=== PATIENT | female | born 1930 | race Caucasian/White ===

== ENCOUNTER 2019-05-19 03:32 | Inpatient (IN) ==
[2019-05-19] MEDS ORDERED: ROCEPHIN 1 GM in NS 50 ML IV ONE ×2 (03:54→05:05)
[2019-05-19] MEDS ORDERED: TYLENOL PO ONE (03:54)
[2019-05-19] MEDS ORDERED: NS 1,000 ML IV ONE ×3 (03:54→05:44)
[2019-05-19 04:28] LABS: URINE SOURCE CATH
[2019-05-19 04:33] LABS: BILIRUBIN URINE NEGATIVE (NEGATIVE); BLOOD URINE MODERATE (NEGATIVE); COLOR YELLOW; GLUCOSE URINE NEGATIVE (NEGATIVE); KETONE URINE NEGATIVE (NEGATIVE); LEUKOCYTES URINE LARGE (NEGATIVE); NITRITE URINE NEGATIVE (NEGATIVE); PROTEIN URINE 50 mg/dL (NEGATIVE); SP GRAVITY URINE 1.015; TURBIDITY URINE HAZY (CLEAR); UROBILINOGEN URINE NORMAL (NORMAL)
[2019-05-19 04:35] LABS: INR 1.11; PROTIME 14.9 Seconds (11.0-16.0)
[2019-05-19 04:36] LABS: PTT 30.7 Seconds (22.3-41.8)
[2019-05-19 04:42] LABS: UR EPITHELIAL CELLS <10 /HPF (<10); URINE BACTERIA 4+ /HPF; URINE CASTS NONE SEEN; URINE CRYSTALS NONE SEEN; URINE RBC TNTC /HPF (<10); URINE SMALL ROUND CELLS NONE SEEN; URINE WBC TNTC /HPF (<10); URINE YEAST NONE SEEN
[2019-05-19 04:55] LABS: BASO# 0.03 X1000 (0.0-0.2); BASO% 0.3 % (0.0-0.8); EOS# 0.09 X1000 (0.0-0.7); HEMATOCRIT 40.8 % (37.0-47.0); HEMOGLOBIN 13.3 g/dL (12.0-16.0); IMM GRAN# 0.03 X1000 (0.0-0.04); IMM GRAN% 0.3 % (0.0-0.5); LYMPH# 0.65 X1000 (1.2-3.4); MCH 30.5 PG (27-31); MCHC 32.6 g/dL (33-37); MCV 93.6 FL (81-99); MONO# 0.16 X1000 (0.11-0.59); MONO% 1.7 % (1.7-9.3); MPV 9.9 FL (7.4-10.4); NEUT# 8.39 X1000 (1.4-6.5); NEUT% 89.7 % (42.2-75.2); PLT 267 X1000 (130-400); RBC 4.36 XMIL (4.2-5.4); RDW 13.3 % (11.5-14.5); WBC 9.35 X1000 (4.8-10.8)
[2019-05-19 04:56] LABS: INFLUENZA A NEGATIVE (NEGATIVE); INFLUENZA B NEGATIVE (NEGATIVE)
[2019-05-19 05:00] LABS: ALBUMIN 4.2 g/dL (3.5-5.0); CALCIUM 9.6 mg/dL (8.8-10.2); POTASSIUM 4.1 mmol/L (3.5-5.1); TOTAL BILIRUBIN 0.9 mg/dL (0.20-1.00); TOTAL PROTEIN 7.1 g/dL (6.3-8.3)
--- NOTE | 2019-05-19 05:19 | PROVIDER DOCUMENTATION ---
HPI-Fever - General Chief Complaint: Altered Mental Status Stated Complaint: EXTERMITY PAIN Time Seen by Provider: 05/19/19 03:50 Source: patient, family Allergies/Adverse Reactions: Patient Allergies Allergy/AdvReac Type Severity Reaction Status Date / Time No Known Allergies Allergy Verified 08/04/15 17:45 Home Medications: Home Medication List Medication Instructions Recorded Confirmed Last Taken Type Aspirin 81 mg PO QHS 06/16/14 08/04/15 08/03/15 19:00 History Calcium Carbonate [Caltrate 600] 600 mg PO QAM 06/16/14 08/04/15 08/04/15 06:30 History Cetirizine HCl [Zyrtec] 10 mg PO QAM 06/16/14 08/04/15 08/04/15 06:30 History Hydrochlorothiazide 25 mg PO QAM 06/16/14 08/04/15 08/04/15 06:30 History Iron 18 mg PO QAM 06/16/14 08/04/15 08/04/15 06:30 History Levothyroxine [Synthroid] 75 mcg PO QAM 06/16/14 08/04/15 08/04/15 06:30 History Meloxicam 15 mg PO QAM 06/16/14 08/04/15 08/04/15 06:30 History Niacin 1,000 mg PO 06/16/14 08/04/15 08/03/15 19:00 History PRAVAstatin [Pravachol] 40 mg PO QHS 06/16/14 08/04/15 08/03/15 19:00 History Propranolol [Inderal] 10 mg PO QAM 06/16/14 08/04/15 08/04/15 06:30 History Multivitamins/Minerals [Centrum 1 each PO QAM 08/04/15 08/04/15 08/04/15 06:30 History Silver] Omeprazole 40 mg PO QAM 08/04/15 08/04/15 08/04/15 06:00 History - History of Present Illness-Fever Nature of Presenting Problem: Brought by son and daughter in law for weakness, unsteady gait, fever, confusion, lethargy and foul smelling urine for the last 2 days, getting worse. Fever Severity/Quality: reports: greater than 102 F Onset/Duration: reports: 2 days ago Timing: reports: still present, constant, changing over time, getting worse Severity: reports: moderate Context: reports: decreased mental status, confusion Recent Illness?: reports: none Fever Therapy REMEDIATION CONSULTANT: Initiated none Cognitive Baseline: alert, oriented x3 Modifying Factors: improves with: nothing. worse with: movement Associated Symptoms: reports: loss of appetite, weakness, trouble walking Similar Symptoms Previously?: No Recently seen or treated by another doctor?: No - Glascow Coma Score Best Eye Response ([place]): (4) open spontaneously Best Verbal Response ([place]): (4) confused conversation Best Motor Response ([place]): (5) localizes to pain [place] Total: 13 Review of Systems - Adult - REVIEW OF SYSTEMS - ADULT ROS:: ROS per family Constitutional: reports: no symptoms reported Eyes: reports: no symptoms reported Ears, Nose, Mouth & Throat: reports: no symptoms reported Cardiovascular: reports: no symptoms reported Respiratory: reports: no symptoms reported Gastrointestinal: reports: no symptoms reported Genitourinary: reports: no symptoms reported Musculoskeletal: reports: no symptoms reported Integumentary: reports: no symptoms reported Neurological: reports: no symptoms reported Psychiatric: reports: no symptoms reported Endocrine: reports: no symptoms reported Hematologic/Lymphatic: reports: no symptoms reported Allergic/Immunologic: reports: no symptoms reported All Other Systems: Reviewed and Negative Past History - Adult - PAST MEDICAL HISTORY-ADULT Review of Records: reports: Old Records Reviewed, Nursing Assessment Review, Medications Reviewed, Social history reviewed & non-contributory. Major Childhood Illnesses: reports: denies history Cardiovascular: reports: HTN, hyperlipidemia Respiratory: reports: denies history Gastrointestinal: reports: denies history Obstetrical/Gynecological: reports: denies history Genitourinary: reports: denies history Musculoskeletal: reports: arthritis Neurological: reports: dementia Endocrine/Immune: reports: thyroid disorder Other Conditions: reports: denies history - PRIOR SURGERIES/PROCEDURES Surgical/Procedure History: reports: hysterectomy, other (hemorrhiod) - IMMUNIZATION STATUS Childhood Immunizations: See Nurse Assessment Flu Vaccine: See Nurse Assessment - FAMILY HISTORY Family History: reviewed, not pertinent - SOCIAL HISTORY Smoking: non-smoker Substance Use: none/never Alcohol Use Frequency: never Living Situation: family Physical Exam-General - PHYSICAL EXAM-ADULT Initial Vital Signs Reviewed: Yes (febrile, tachycardic) - CONSTITUTIONAL General Appearance: alert, no apparent distress, slow to respond - EYES Eyes: PERRL/EOMI, pink conjunctivae - HEAD, EARS, NOSE, MOUTH & THROAT HENMT: normocephalic/atraumatic, normal ENT inspection, pharynx normal. negative: moist mucous membranes (dry) - NECK Neck: non-tender, full range of motion, supple, normal inspection. negative: meningismus - RESPIRATORY Respiratory: chest non-tender, lungs clear, normal breath sounds, no pleuratic chest pain, no respiratory distress, no accessory muscle use, increased rate - CARDIOVASCULAR Cardiovascular: normal peripheral pulses, regular rate, rhythm, no edema, no gallop, no JVD, no murmur, tachycardia - GASTROINTESTINAL (ABDOMEN) Abdominal Exam: normal bowel sounds, non tender, soft, no organomegaly, no pulsatile mass - LYMPHATIC Lymphatic: no adenopathy - MUSCULOSKELETAL Back Exam: normal inspection, no vertebral tenderness. negative: decreased range of motion Extremity: normal range of motion, non-tender, normal capillary refill, pedal edema Peripheral Pulses: radial (R): 2+, radial (L): 2+ - SKIN Integumentary: normal color, normal turgor, warm/dry - NEUROLOGIC Neurologic: non food receiving clerk II-XII nml as tested, abnormal gait, other (mild generalized weakness) - PSYCHIATRIC Psych/Mental Status: normal mood/affect. negative: oriented x 3 (to name only) Progress - PLAN OF CARE/RESULTS Progress/Plan/Lab Results: Vital Signs - 8 hr 05/19/19 03:39 Temperature 100.6 F H Pulse Rate 102 H Respiratory Rate 20 Blood Pressure 118/77 O2 Sat by Pulse Oximetry 92 L Laboratory Results - last 24 hr 05/19/19 05/19/19 05/19/19 03:55 03:57 03:57 WBC 9.35 RBC 4.36 Hgb 13.3 Hct 40.8 MCV 93.6 MCH 30.5 MCHC 32.6 L RDW Std Deviation 13.3 Plt Count 267 MPV 9.9 Immature Gran % (Auto) 0.3 Neut % (Auto) 89.7 H Lymph % (Auto) 7.0 L Mcmullen % (Auto) 1.7 Eos % (Auto) 1.0 Baso % (Auto) 0.3 Immature Gran # (Auto) 0.03 Neut # (Auto) 8.39 H Lymph # (Auto) 0.65 L Mcmullen # (Auto) 0.16 Eos # (Auto) 0.09 Baso # (Auto) 0.03 PT INR PTT (Actin FS) Sodium 139 Potassium 4.1 Chloride 102 Carbon Dioxide 21 L Anion Gap 16 BUN 17 Creatinine 1.0 H Estimated GFR/1.73 m2 52 BUN/Creatinine Ratio 17 Glucose 154 H Calculated Osmolality 282 Calcium 9.6 Total Bilirubin 0.90 AST 47 H ALT 16 Alkaline Phosphatase 134 H Creatine Kinase 1280 H Creatine Kinase Index 0.7 CK-MB (CK-2) 9.22 H Troponin T High Sens Total Protein 7.1 Albumin 4.2 Globulin 3.0 Albumin/Globulin Ratio 1.0 Plasma Lactate Urine Source Urine Color Urine Turbidity Urine pH Ur Specific [place] Urine Protein Ur Glucose (Stick) Ur Ketones (Stick) Urine Blood Urine Nitrite Urine Bilirubin Urobilinogen Dipstick Urine Leukocytes Urine WBC (Auto) Urine RBC (Auto) U Epithel Cells (Auto) Urine Bacteria (Auto) Urine Crystals Small Round Cells Urine Casts Urine Yeast-like Cells Influenza A (Rapid) NEGATIVE Influenza B (Rapid) NEGATIVE 05/19/19 05/19/19 05/19/19 03:57 03:57 03:57 WBC RBC Hgb Hct MCV MCH MCHC RDW Std Deviation Plt Count MPV Immature Gran % (Auto) Neut % (Auto) Lymph % (Auto) Mcmullen % (Auto) Eos % (Auto) Baso % (Auto) Immature Gran # (Auto) Neut # (Auto) Lymph # (Auto) Mcmullen # (Auto) Eos # (Auto) Baso # (Auto) PT 14.9 INR 1.11 PTT (Actin FS) 30.7 Sodium Potassium Chloride Carbon Dioxide Anion Gap BUN Creatinine Estimated GFR/1.73 m2 BUN/Creatinine Ratio Glucose Calculated Osmolality Calcium Total Bilirubin AST ALT Alkaline Phosphatase Creatine Kinase Creatine Kinase Index CK-MB (CK-2) Troponin T High Sens 22 H* Total Protein Albumin Globulin Albumin/Globulin Ratio Plasma Lactate 1.8 Urine Source Urine Color Urine Turbidity Urine pH Ur Specific [place] Urine Protein Ur Glucose (Stick) Ur Ketones (Stick) Urine Blood Urine Nitrite Urine Bilirubin Urobilinogen Dipstick Urine Leukocytes Urine WBC (Auto) Urine RBC (Auto) U Epithel Cells (Auto) Urine Bacteria (Auto) Urine Crystals Small Round Cells Urine Casts Urine Yeast-like Cells Influenza A (Rapid) Influenza B (Rapid) 05/19/19 04:11 WBC RBC Hgb Hct MCV MCH MCHC RDW Std Deviation Plt Count MPV Immature Gran % (Auto) Neut % (Auto) Lymph % (Auto) Mcmullen % (Auto) Eos % (Auto) Baso % (Auto) Immature Gran # (Auto) Neut # (Auto) Lymph # (Auto) Mcmullen # (Auto) Eos # (Auto) Baso # (Auto) PT INR PTT (Actin FS) Sodium Potassium Chloride Carbon Dioxide Anion Gap BUN Creatinine Estimated GFR/1.73 m2 BUN/Creatinine Ratio Glucose Calculated Osmolality Calcium Total Bilirubin AST ALT Alkaline Phosphatase Creatine Kinase Creatine Kinase Index CK-MB (CK-2) Troponin T High Sens Total Protein Albumin Globulin Albumin/Globulin Ratio Plasma Lactate Urine Source CATH Urine Color YELLOW Urine Turbidity HAZY Urine pH 6.0 Ur Specific [place] 1.015 Urine Protein 50 A Ur Glucose (Stick) NEGATIVE Ur Ketones (Stick) NEGATIVE Urine Blood MODERATE A Urine Nitrite NEGATIVE Urine Bilirubin NEGATIVE Urobilinogen Dipstick NORMAL Urine Leukocytes LARGE A Urine WBC (Auto) TNTC A Urine RBC (Auto) TNTC A U Epithel Cells (Auto) <10 Urine Bacteria (Auto) 4+ Urine Crystals NONE SEEN Small Round Cells NONE SEEN Urine Casts NONE SEEN Urine Yeast-like Cells NONE SEEN Influenza A (Rapid) Influenza B (Rapid) Orders Category Date Time Status Cardiac Monitoring DIRECTED Care 05/19/19 03:53 Active [place] Cath Insertion ORDERED Care 05/19/19 03:54 Active IV Insertion ORDERED Care 05/19/19 03:53 Completed Notify of + Sepsis Screen NOW Care 05/19/19 03:53 Active CHEST-1 VIEW [RAD] Stat Exams 05/19/19 03:53 Taken BLOOD CULTURE [BLDCUL] Stat Lab 05/19/19 04:21 Ordered CBC WITH DIFF [HEME] Stat Lab 05/19/19 03:57 Completed CK PROFILE [SP CHEM] Stat Lab 05/19/19 03:57 Completed COMPREHENSIVE METABOLIC PANEL [CHEM] Stat Lab 05/19/19 03:[address] Stat Lab 05/19/19 03:55 Completed LACTATE, PLASMA [CHEM] Lab 05/19/19 07:00 Uncollected LACTATE, PLASMA [CHEM] Lab 05/19/19 10:00 Uncollected LACTATE, PLASMA [CHEM] Q3H Lab 05/19/19 03:57 Completed PROTIME WITH INR [COAG] Stat Lab 05/19/19 03:57 Completed PTT [COAG] Stat Lab 05/19/19 03:57 Completed TROPONIN T HIGH SENSITIVITY Stat Lab 05/19/19 03:57 Completed URINALYSIS W/POSS RFLX CULT [URINALYSIS] Stat Lab 05/19/19 04:11 Completed URINE CULTURE [RM] Routine Lab 05/19/19 04:43 Ordered URINE MANUAL MICROSCOPIC [URINALYSIS] Stat Lab 05/19/19 04:11 Completed 0.9% Sodium Chloride Inj [Ns] 1,000 ml Med 05/19/19 03:54 Discontinued IV 999 mls/hr 0.9% Sodium Chloride Inj [Ns] 1,000 ml Med 05/19/19 03:54 Discontinued IV 999 mls/hr Acetaminophen [Tylenol] Med 05/19/19 03:54 Discontinued 650 mg PO NOW ONE CefTRIAXONE [Rocephin] 1 gm Med 05/19/19 03:54 Discontinued 0.9% Sodium Chloride Inj [Ns] 50 ml IV NOW CefTRIAXONE [Rocephin] 1 gm Med 05/19/19 05:05 Discontinued 0.9% Sodium Chloride Inj [Ns] 50 ml IV NOW Oxygen Device Stat Oth 05/19/19 03:53 Active Result Diagrams: 05/19/19 03:57 05/19/19 03:57 - REASSESSMENT Reassessment #1 Time Reassessed: 05:40 Status: improving (Given IVF, tylenol , 2gm rocephin. Meets sepsis crioteria, but is not in severe sepsis or septic shock. Will needs admission) - EKG 1 Time of EKG reading by physician:: 05:10 EKG Read and Signed by:: Quan Mccrary EKG Interpretation (*Must complete 3 of following elements*): Abnormal Rate: 88 Rhythm: nsr Cub Run: normal QRS: normal SC Interval: normal ST Wave: non-specific ST changes - XRAY 1 XRAY Study: Chest Impression: Abnormal (read by me. Borderline CM, elevated right hemidiaphragm, no obvious infiltrates. 05) - CONSULTS/PCP/HOSPITALIST Notification #1 *Consult/PCP/Hospitalist*: Soumya Time Discussed: 05:30 Consult Disposition: Admit Departure - Departure Date of Disposition Decision: 05/19/19 Time of Disposition Decision: 05:41 DIAGNOSIS: Altered mental status, unspecified Qualifiers: Altered mental status type: disorientation Qualified Code(s): R41.0 - Disorientation, unspecified Sepsis Qualifiers: Sepsis type: sepsis due to unspecified organism Sepsis acute organ dysfunction status: with acute organ dysfunction Severe sepsis acute organ dysfunction type: encephalopathy Severe sepsis shock status: without septic shock Qualified Code(s): A41.9 - Sepsis, unspecified organism; R65.20 - Severe sepsis without septic shock; G93.40 - Encephalopathy, unspecified UTI (urinary tract infection) Qualifiers: Urinary tract infection type: acute pyelonephritis Qualified Code(s): N10 - Acute pyelonephritis Disposition: ADMITTED INPATIENT 09 Certified Medical Emergency: Emergent Condition: Fair Referrals and Follow-Ups: Juan Jose Santana MD [Primary Care Provider] - - Critical Care Note This patient required my direct & personal management of CC.: Yes Total Time (mins): 40 Critical Care Statement: This patient required my direct personal management to treat or rule out processes, the absence of which, could potentiallly result in sudden, clinically significant life or limb threatening deterioration. Attestation - Physician/ HORACIO Attestation Patient care was provided by Advanced Practice Provider:: No The physician spent face to face time with patient:: Yes Advanced Practice Provider documentation review:: Supervising physician onsite and consulted in the evaluation and care of this patient. The physician did have a face to face encounter with the patient.
[2019-05-19 05:23] LABS: CK INDEX 0.7 (0.0-2.5); CK-MB 9.22 ng/mL (0.0-5.0)
[2019-05-19] MEDS ORDERED: ZOFRAN ODT PO PRN (05:44)
--- NOTE | 2019-05-19 07:46 | Diag Imaging Result Doc PS360 ---
CHEST-1 VIEW - 05/19/2019 INDICATION: fever, AMS COMPARISON: 05/29/2017 FINDINGS: Lung volumes are critically low. No infiltrates. Heart size is normal. No pneumothorax or pleural effusion. IMPRESSION: Critically low lung volumes but no acute disease. Electronically signed by Laith Garcia 05/19/2019 7:44 AM
[2019-05-19] MEDS ORDERED: NS 1,000 ML ONE (09:18)
--- NOTE | 2019-05-19 09:46 | EKG Report ---
Test Performed on : 05/19/2019 05:03:57 AM Test Reason : ER Blood Pressure : / mmHG Vent. Rate : 088 BPM Atrial Rate : 088 BPM P-R Int : 164 ms QRS Dur : 092 ms QT Int : 374 ms P-R-T Axes : 071 041 035 degrees QTc Int : 452 ms Normal sinus rhythm. Normal ECG When compared with ECG of 04-AUG-2015 13:26, Nonspecific T wave abnormality no longer evident in Lateral leads Unconfirmed Result
[2019-05-19] MEDS ORDERED: SYNTHROID PO SCH (10:45)
[2019-05-19] MEDS ORDERED: CENTRUM SILVER PO SCH (10:45)
[2019-05-19] MEDS: PRILOSEC PO SCH (11:36)
[2019-05-19] MEDS: INDERAL PO SCH (11:36)
[2019-05-19 13:29] LABS: CK INDEX 0.6 (0.0-2.5); CK-MB 5.01 ng/mL (0.0-5.0)
--- NOTE | 2019-05-19 14:00 | HISTORY AND PHYSICAL ---
PRIMARY CARE PROVIDER: Juan Jose Santana CHIEF COMPLAINT: Foul smelling urine, more confusion, weakness and incontinence. HISTORY OF PRESENT ILLNESS: Ms. Paula Burnette is an 88-year-old female who presents with decreased strength, chills, fever. Per the [id number] at the bedside, symptoms started Sunday. She noticed that the patient had foul smelling urine with some incontinence on Sunday. She was getting weaker and was still able to go to [facility], did not go to [facility], progressively became more weak, was placed in the bed at night, and the patient started complaining of chills and fever, was having more nonverbal communication than she was verbal communicating. So she was brought here to [facility] where she was found to have a urinalysis positive for 4+ bacteria, too numerous to count white blood cells and large leukocytes; however, white blood cell count is normal. Since she has been here, she has had IV fluid hydration, some IV antibiotics, and the patient is already starting to become a little more clear. She does have a history of dementia. PAST MEDICAL HISTORY: 1. GERD. 2. Hyperlipidemia. 3. Essential tremors. 4. Arthritis. 5. Hypothyroidism. 6. Iron deficiency anemia. 7. Hypertension. 8. Dementia. 9. Chronic anxiety. PAST SURGICAL HISTORY: 1. Hysterectomy. 2. Hemorrhoidectomy. 3. Bilateral cataracts. SOCIAL HISTORY: Denies tobacco, alcohol or illicit drug use. She lives at home with her son and [id number]. She usually walks with a walker. FAMILY HISTORY: No known medical conditions of the mother and father. ALLERGIES: No known drug allergies. HOME MEDICATIONS: 1. Aspirin 81 mg p.o. nightly. 2. Donepezil HCl 5 mg p.o. nightly. 3. Mobic 15 mg p.o. nightly. 4. Pravastatin 40 mg p.o. nightly. 5. Caltrate 600 mg p.o. daily. 6. Multivitamin 1 tab p.o. daily. 7. Propranolol 10 mg p.o. daily. 8. Klonopin 0.25 mg p.o. nightly. 9. Omeprazole 40 mg p.o. daily. 10.Synthroid 88 mcg p.o. daily. REVIEW OF SYSTEMS: Denies any symptoms. A 10-point review of systems was complete, and all were negative except for those mentioned in the above HPI. PHYSICAL EXAMINATION: VITAL SIGNS: Temperature 97.8, but prior to that it was 100.6. Heart rate 70, respiratory rate 18, blood pressure 118/65, O2 saturation is 95% on room air. She is 5 feet 6 inches tall and 163 pounds with a BMI of 26.3. GENERAL: Ms. Paula Burnette is an 88-year-old female. She is in no acute distress. She is able to answer some questions appropriately but not all. HEENT: Atraumatic and normocephalic. Pupils are equal, round and reactive to light. Extraocular movements were intact. Mucous membranes are moist. NECK: Trachea midline. CARDIOVASCULAR: S1 and S2. Regular rate and rhythm. No rubs, gallops or murmurs. No lower extremity edema. There are +2 dorsalis and radial pulses. Negative JVD or carotid bruits. PULMONARY: Clear to auscultation, bilateral breath sounds. No accessory muscle use or work of breathing noted. GASTROINTESTINAL: Soft, nontender and nondistended. Positive bowel sounds x4. EXTREMITIES: Moves all extremities equally with full range of motion. NEUROLOGICAL: Alert and oriented to name only. Follows commands. SKIN: Warm, dry and intact. DIAGNOSTIC DATA: White blood cells are 9000, hemoglobin 13, hematocrit 40, platelet count 267. INR is 1.11. PTT is 30.7. Sodium is 139, potassium 4.1, BUN is 17, creatinine is 1.0, glucose 154, calcium 9.6, bilirubin 0.90, AST is 47, ALT is 16. CK is 68. CKMB is 9.22. Troponin is 19. Albumin 4.2. Lactate was 1.8, 1.2, and then 1.4. Urinalysis with 50 protein, moderate blood, large leukocytes, too numerous to count white blood cells, too numerous to count red blood cells, 4+ bacteria. Influenza A and B both negative. Chest x-ray with no acute findings. EKG is normal sinus rhythm with rate 88, QTC is 452. ASSESSMENT AND PLAN: 1. Urinary tract infection. Urinalysis obtained. The patient was started on antibiotic therapy. IV fluids given. No signs or symptoms of sepsis, although she did have a fever and high heart rate, it resolved with fluids. White count was normal. 2. Encephalopathy secondary to urinary tract infection which has started to improve with a baseline of dementia. 3. Dementia. Continue home medication, Donepezil. 4. Hyperlipidemia. Continue statin. 5. Essential tremors. Continue propranolol. 6. Gastroesophageal reflux disease. Continue proton pump inhibitor. 7. Hypothyroidism. Continue Synthroid. 8. DVT prophylaxis with SCDs. Dictated by ZACHARY Dyer for Bryan Dooley MD cc: ZACHARY Dyer MD
[2019-05-19] MEDS: THERA M PLUS PO SCH (14:22)
[2019-05-19] MEDS: ROCEPHIN 1 GM in NS 50 ML IV SCH ×2 (18:11→20:10)
[2019-05-19] MEDS: PRAVACHOL PO SCH (20:09)
[2019-05-19] MEDS: ASPIRIN PO SCH (20:09)
[2019-05-19] MEDS: MOBIC PO SCH (20:10)
[2019-05-19] MEDS: KLONOPIN PO PRN (20:14)
--- NOTE | 2019-05-19 20:25 | HISTORY AND PHYSICAL ---
ADDENDUM: Patient seen and examined by myself. Full note dictated and discussed with nurse practitioner. Patient presented to the hospital with unsteady gait, fever, confusion, and lethargy. She also noted to have a fever of 102. Currently temperature maximum is 100.6. She has a urinary infection. We are going to admit her to the hospital, treat her for sepsis, and will follow. cc: Bryan Dooley MD
[2019-05-19] MEDS ORDERED: ARICEPT PO SCH (21:00)
[2019-05-19 21:21] LABS: CK INDEX 0.5 (0.0-2.5); CK-MB 3.51 ng/mL (0.0-5.0)
[2019-05-20] MEDS: TYLENOL PO PRN ×2 (05:34→21:54)
[2019-05-20] MEDS ORDERED: KLONOPIN PO PRN (06:30)
[2019-05-20] MEDS: HALDOL IV PRN ×2 (07:30→21:55)
[2019-05-20] MEDS: CALTRATE 600 PO SCH (10:56)
[2019-05-20] MEDS: PRILOSEC PO SCH (10:56)
[2019-05-20] MEDS: INDERAL PO SCH (10:56)
[2019-05-20] MEDS: SYNTHROID PO SCH (10:56)
[2019-05-20] MEDS: THERA M PLUS PO SCH (10:57)
[2019-05-20] MEDS: ROCEPHIN 1 GM in NS 50 ML IV SCH ×2 (10:57→21:55)
--- NOTE | 2019-05-20 19:06 | PROGRESS NOTE ---
DATE: 05/20/2019 SUBJECTIVE: Patient is very agitated, yelling, cussing at times. She does not answer questions appropriately nor follow commands. OBJECTIVE: Temperature 100.5 degrees, pulse 66, respiratory rate 18, BP 118/48.General: Patient is in no current respiratory distress. She is lying in the bed. Currently, she is calm. HEENT: Normocephalic. Neck: Supple. Cardiovascular: Regular rate. Chest: Clear. Abdomen: Soft. Extremities: Moves all extremities. ASSESSMENT: 1. Gram-negative regulo urinary tract infection. Continue Rocephin. 2. Metabolic encephalopathy secondary to urinary tract infection. 3. Dementia. 4. Hyperlipidemia. 5. Tremors. 6. Hypothyroidism. PLAN: We are going to continue patient in the hospital, continue to follow. Further orders as needed. We will follow her urine culture and adjust when available. cc: Bryan Dooley MD
[2019-05-20] MEDS: ASPIRIN PO SCH (21:54)
[2019-05-20] MEDS: MOBIC PO SCH (21:54)
[2019-05-20] MEDS: ARICEPT PO SCH (21:55)
[2019-05-20] MEDS: PRAVACHOL PO SCH (21:55)
[2019-05-20] MEDS: BENADRYL IV PRN (21:55)
[2019-05-21] MEDS: SYNTHROID PO SCH (06:04)
[2019-05-21] MEDS: CALTRATE 600 PO SCH (09:55)
[2019-05-21] MEDS: ROCEPHIN 1 GM in NS 50 ML IV SCH ×2 (09:55→20:12)
[2019-05-21] MEDS: INDERAL PO SCH (09:55)
[2019-05-21] MEDS: THERA M PLUS PO SCH (09:56)
[2019-05-21] MEDS: PRILOSEC PO SCH (09:56)
[2019-05-21] MEDS ORDERED: NS 1,000 ML IV SCH (18:30)
[2019-05-21] MEDS: ASPIRIN PO SCH (20:12)
[2019-05-21] MEDS: PRAVACHOL PO SCH (20:13)
[2019-05-21] MEDS: ARICEPT PO SCH (20:13)
[2019-05-21] MEDS: MOBIC PO SCH (20:13)
--- NOTE | 2019-05-21 20:53 | PROGRESS NOTE ---
DATE: 05/21/2019 SUBJECTIVE: The patient continues to have issues with agitation, although Haldol does seem to improve that situation at times. We will continue antibiotics. PHYSICAL EXAM: Vital Signs: Temperature 98, pulse 72, respiratory rate 18, BP 143/57. General: Patient is pleasant. She is calm. She is awake. She is in no distress. She does awaken at times on her own and does drink some with the sitter. HEENT: Normocephalic. Neck: Supple. Cardiovascular: Regular rate. Chest: Clear, nonlabored. Abdomen: Soft, nondistended. Extremities: Moves all extremities. ASSESSMENT: 1. Gram-negative regulo urinary tract infection. 2. Metabolic encephalopathy. 3. Dementia. 4. Hypertension. 5. Essential tremors. PLAN: We will continue patient in the hospital, continue fluids and antibiotics. Will follow. cc: Bryan Dooley MD
[2019-05-22] MEDS: BENADRYL IV PRN (00:26)
[2019-05-22] MEDS: HALDOL IV PRN (00:26)
[2019-05-22] MEDS: NORCO-5 PO PRN (03:10)
[2019-05-22] MEDS: KLONOPIN PO PRN ×2 (03:10→20:49)
[2019-05-22] MEDS: SYNTHROID PO SCH (06:07)
[2019-05-22 07:07] LABS: AGAP 12; ALBUMIN 2.8 g/dL (3.5-5.0); ALKALINE PHOSPHATASE 99 U/L (32-104); BUN 11 mg/dL (8-22); CALCIUM 8.5 mg/dL (8.8-10.2); CHLORIDE 103 mmol/L (98-107); COSMO 268; CREATININE 0.8 mg/dL (0.5-0.9); ESTIMATED GFR > 60; GLUCOSE 111 mg/dL (70-104); GOT 28 U/L (10-30); GPT 15 U/L (10-36); MAGNESIUM 1.8 mg/dL (1.5-2.7); POTASSIUM 3.5 mmol/L (3.5-5.1); SODIUM 134 mmol/L (136-145); TCO2 20 mmol/L (25-35); TOTAL PROTEIN 6.3 g/dL (6.3-8.3)
[2019-05-22 07:15] LABS: HEMATOCRIT 34.6 % (37.0-47.0); HEMOGLOBIN 11.1 g/dL (12.0-16.0); MCH 29.8 PG (27-31); MCHC 32.1 g/dL (33-37); MCV 92.8 FL (81-99); MPV 10.5 FL (7.4-10.4); RBC 3.73 XMIL (4.2-5.4); RDW 13.1 % (11.5-14.5); WBC 8.49 X1000 (4.8-10.8)
[2019-05-22] MEDS: MAXIPIME 1 GM in NS 50 ML IV SCH ×2 (10:06→22:58)
[2019-05-22] MEDS: CALTRATE 600 PO SCH (10:07)
[2019-05-22] MEDS: THERA M PLUS PO SCH (10:08)
[2019-05-22] MEDS: PRILOSEC PO SCH (10:08)
[2019-05-22] MEDS: INDERAL PO SCH (10:08)
--- NOTE | 2019-05-22 20:17 | PROGRESS NOTE ---
DATE: 05/22/2019 SUBJECTIVE: Patient currently is calm, sleeping. She is in no distress. PHYSICAL EXAMINATION: Vital signs: T-max 101 degrees, T current 99 degrees, pulse 61, respiratory 20, BP 152/78. General: Patient is calm. She is in no current respiratory distress. She is sitting in the bed with her eyes closed. Does open them, but does not respond or answer questions. HEENT: Normocephalic. Neck: Supple. CV: Regular rate. Chest: Clear and nonlabored. Abdomen: Soft and nondistended. Extremities: Moves all extremities. ASSESSMENT: 1. Extended-spectrum beta lactamase positive Escherichia coli. We will stop Rocephin, switch to cefepime. 2. Metabolic encephalopathy. 3. Dementia. 4. Hyperlipidemia. 5. Essential tremors. 6. Hyponatremia. 7. Sepsis, resolved, secondary to urinary tract infection. cc: Bryan Dooley MD
[2019-05-22] MEDS: PRAVACHOL PO SCH (20:48)
[2019-05-22] MEDS: ASPIRIN PO SCH (20:49)
[2019-05-22] MEDS: ARICEPT PO SCH (20:49)
[2019-05-22] MEDS: MOBIC PO SCH (20:49)
[2019-05-23] MEDS ORDERED: MERREM 1 GM in NS 50 ML IV SCH (08:00)
[2019-05-23] MEDS: PRILOSEC PO SCH (08:13)
[2019-05-23] MEDS: SYNTHROID PO SCH (08:14)
[2019-05-23] MEDS: INVANZ 1 GM/NS 1 GM/50 ML IVPB IV SCH (10:44)
[2019-05-23] MEDS: INDERAL PO SCH (10:45)
[2019-05-23] MEDS: THERA M PLUS PO SCH (10:45)
[2019-05-23] MEDS: CALTRATE 600 PO SCH (10:45)
--- NOTE | 2019-05-23 20:50 | PROGRESS NOTE ---
DATE: 05/23/2019 SUBJECTIVE: The patient actually is much more alert today than she has been. She awakened and said "good morning" to verbal stimuli. OBJECTIVE: T-max 99 degrees, pulse 61, respiratory rate 18, BP 145/51.General: The patient is awake, pleasant. She is in no distress. HEENT: Normocephalic. Neck supple. Cardiovascular: Regular rate. Chest clear. Abdomen soft. Extremities: Moves all extremities. ASSESSMENT AND PLAN: 1. Extended-spectrum cpjs-szpezqzab-wiijalid Escherichia coli urinary tract infection. We switched to Invanz for which she will need 14 days, beginning today as day 1. 2. Dementia. 3. Metabolic encephalopathy, improved. 4. Hyperlipidemia. cc: Bryan Dooley MD
[2019-05-23] MEDS: ARICEPT PO SCH (21:16)
[2019-05-23] MEDS: PRAVACHOL PO SCH (21:17)
[2019-05-23] MEDS: ASPIRIN PO SCH (21:17)
[2019-05-23] MEDS: MOBIC PO SCH (21:17)
[2019-05-23] MEDS: KLONOPIN PO PRN (21:17)
[2019-05-23] MEDS: NORCO-5 PO PRN (21:17)
[2019-05-23] MEDS: HALDOL IV PRN (21:45)
[2019-05-23] MEDS: BENADRYL IV PRN (21:45)
[2019-05-24] MEDS: PRILOSEC PO SCH (06:26)
[2019-05-24] MEDS: SYNTHROID PO SCH (06:26)
[2019-05-24] MEDS: INVANZ 1 GM/NS 1 GM/50 ML IVPB IV SCH (08:30)
[2019-05-24] MEDS: INDERAL PO SCH (10:39)
[2019-05-24] MEDS: THERA M PLUS PO SCH (10:39)
[2019-05-24] MEDS: CALTRATE 600 PO SCH (10:39)
--- NOTE | 2019-05-24 15:24 | PROGRESS NOTE ---
DATE: 05/24/2019 SUBJECTIVE: Patient is much more awake, alert. She is in no distress. Family notes that she is pretty much back to her baseline. PHYSICAL: Temp 92 degrees pulse 65, respiratory rate 18, BP is 152/59.General: Patient is in no distress. HEENT: Normocephalic. Neck: Supple. Cardiovascular: Regular rate. Chest: Clear. Abdomen: Soft. Extremities: Moves all extremities. ASSESSMENT: 1. Extended-spectrum jkyy-dzpkkjpfj-ngaqitbe Escherichia coli urinary tract infection. 2. Metabolic encephalopathy resolved secondary to extended-spectrum ujfx-dkacuotkz-urtxiblv Escherichia coli. 3. Dementia, chronic. 4. Hyperlipidemia. 5. Essential tremors. 6. Hypothyroidism. PLAN: Today is day 2 out of 14 of Invanz. She will need to continue Invanz. We will need to keep her on it for the full 14 day treatment. cc: Bryan Dooley MD
[2019-05-24] MEDS: ASPIRIN PO SCH (20:09)
[2019-05-24] MEDS: ARICEPT PO SCH (20:09)
[2019-05-24] MEDS: NORCO-5 PO PRN (20:10)
[2019-05-24] MEDS: MOBIC PO SCH (20:10)
[2019-05-24] MEDS: BENADRYL IV PRN (20:10)
[2019-05-24] MEDS: PRAVACHOL PO SCH (20:10)
[2019-05-24] MEDS: HALDOL IV PRN (20:10)
[2019-05-25] MEDS: INVANZ 1 GM/NS 1 GM/50 ML IVPB IV SCH (09:42)
[2019-05-25] MEDS: THERA M PLUS PO SCH (09:43)
[2019-05-25] MEDS: PRILOSEC PO SCH (09:43)
[2019-05-25] MEDS: CALTRATE 600 PO SCH (09:43)
[2019-05-25] MEDS: SYNTHROID PO SCH (09:43)
[2019-05-25] MEDS: INDERAL PO SCH (09:43)
--- NOTE | 2019-05-25 13:24 | PROGRESS NOTE ---
DATE: 05/25/2019 SUBJECTIVE: Patient with no complaints. She is eating breakfast. Her daughter is in the room. PHYSICAL EXAMINATION: Vital Signs: Temperature 97.6, pulse 57, respiratory rate 18, BP 171/82. General: The patient is awake, alert, essentially back to her baseline. HEENT: Normocephalic. Neck: Supple. Cardiovascular: Regular rate. Chest: Clear. Nonlabored. Abdomen: Soft, nondistended. Extremities: Moves all extremities. ASSESSMENT: 1. Extended spectrum ahbs-qwykqswhn-phdsxiky Escherichia coli urinary tract infection. 2. Extended spectrum efen-hsqrizvjy-dilrqvss Escherichia coli septicemia, resolved. 3. Altered mental status, resolved, secondary to metabolic encephalopathy from urinary tract infection. 4. Dementia. 5. Hyperlipidemia. 6. Essential tremors. 7. Hypothyroidism. PLAN: Will continue the patient in the hospital. Today is day 3 of 14 of antibiotics. She will need IV Invanz 1 gram daily for 14 total days. We will attempt to get this set up tomorrow to hopefully discharge. cc: Bryan Dooley MD
[2019-05-25] MEDS: NORCO-5 PO PRN (20:14)
[2019-05-25] MEDS: KLONOPIN PO PRN (20:14)
[2019-05-25] MEDS: PRAVACHOL PO SCH (20:14)
[2019-05-25] MEDS: ARICEPT PO SCH (20:15)
[2019-05-25] MEDS: MOBIC PO SCH (20:15)
[2019-05-25] MEDS: ASPIRIN PO SCH (20:15)
[2019-05-26] MEDS: CALTRATE 600 PO SCH (08:47)
[2019-05-26] MEDS: INDERAL PO SCH (08:47)
[2019-05-26] MEDS: THERA M PLUS PO SCH (08:47)
[2019-05-26] MEDS: INVANZ 1 GM/NS 1 GM/50 ML IVPB IV SCH (08:47)
[2019-05-26] MEDS: PRILOSEC PO SCH (08:47)
[2019-05-26] MEDS: SYNTHROID PO SCH (08:47)
--- NOTE | 2019-05-26 18:56 | PROGRESS NOTE ---
DATE: 05/26/2019 SUBJECTIVE: The patient is anxiously back to her baseline. She was able to ambulate a little bit today. She is feeling better. She is eating breakfast with no difficulty. PHYSICAL: Temperature 97.6 degrees, pulse 76, respiratory rate 18, BP 168/75.General: The patient is a very pleasant elderly female who is in no respiratory distress. HEENT: Normocephalic. Neck: Supple. Cardiovascular: Regular rate. Chest: Clear, nonlabored. Abdomen: Soft, nontender. Extremities: Moves all extremities. No edema. Neurologic: No focal changes. ASSESSMENT: 1. Extended spectrum beta-lactamases positive Escherichia coli. 2. Metabolic encephalopathy secondary to urinary tract infection, resolved. 3. Dementia. The patient is back to her baseline. 4. Hyperlipidemia. 5. Essential tremors. 6. Hypothyroidism. PLAN: Overall, the patient is stable and medically okay for discharge. However, she has extended spectrum beta-lactamases positive Escherichia coli for which she needs IV Invanz 1 gram daily for a total of 14 days. Today is day 4 of 14. cc: Bryan Dooley MD
[2019-05-26] MEDS: MOBIC PO SCH (20:42)
[2019-05-26] MEDS: PRAVACHOL PO SCH (20:43)
[2019-05-26] MEDS: ASPIRIN PO SCH (20:43)
[2019-05-26] MEDS: ARICEPT PO SCH (20:43)
[2019-05-26] MEDS: KLONOPIN PO PRN (20:43)
[2019-05-26] MEDS: NORCO-5 PO PRN (20:44)
[2019-05-27] MEDS: PRILOSEC PO SCH (06:44)
[2019-05-27] MEDS: SYNTHROID PO SCH (06:45)
[2019-05-27] MEDS: INVANZ 1 GM/NS 1 GM/50 ML IVPB IV SCH (08:59)
[2019-05-27] MEDS: CALTRATE 600 PO SCH (08:59)
[2019-05-27] MEDS: INDERAL PO SCH (08:59)
[2019-05-27] MEDS: THERA M PLUS PO SCH (08:59)
[2019-05-27 09:15] VITALS: BP 149/72
--- NOTE | 2019-05-28 05:21 | DISCHARGE SUMMARY ---
ADMISSION DATE: 05/19/2019 DISCHARGE DATE: 05/27/2019 ADMITTING DIAGNOSES: 1. Urinary tract infection. 2. Encephalopathy. 3. Dementia. 4. Hyperlipidemia. 5. Essential tremors. 6. Gastroesophageal reflux disease. 7. Hypothyroidism, chronic. DISCHARGE DIAGNOSES: 1. Extended spectrum beta lactamase positive Escherichia coli urinary tract infection. 2. Metabolic encephalopathy. 3. Dementia. 4. Hyperlipidemia chronic. 5. Essential tremors. 6. Hypothyroidism chronic. PROCEDURES AND FINDINGS: Chest x-ray that was done on 05/19/2019 showed no evidence of acute disease. Urine cultures that were done on 05/22/2019 did show Escherichia coli that is resistant to tobramycin and resistant to Levaquin, resistant to gentamicin. Also had a gram-negative regulo. HOSPITAL COURSE: Ms. Burnette is an 88-year-old female, who presented to the ER with decreased strength, fever and chills. The patient had noted some foul-smelling urine and some incontinence. The patient had became progressively more weak. She had also become nonverbal. Patient was noted to have a UTI on urinalysis. She was admitted to the medical floor. She was started on IV fluid hydration and IV antibiotics. Blood cultures and urine cultures were obtained. The patient was initially given Rocephin. She was then started on cefepime. She was switched over to Invanz because of resistance to antibiotics. Urine culture did come back and show E. Coli with gram-negative rods. Blood cultures did come back negative. Patient has shown great improvement. The patient is going to be discharged home today. She will need a total of 14 days of the Invanz 1 g. The patient has received a total of 5 days of the Invanz. She will need a total of 9 more days. Prior authorization has been approved. Prior authorization #[id number]. The patient will have [email or web address] and [facility]. DISCHARGE MEDICATIONS: 1. Aspirin 81 mg p.o. at bedtime. 2. Donepezil 5 mg p.o. at bedtime. 3. Meloxicam 50 mg p.o. at bedtime. 4. Pravachol 40 mg p.o. at bedtime. 5. Caltrate 600 mg p.o. every morning. 6. MultiVites with lutein 1 tablet p.o. daily. 7. Propranolol 10 mg p.o. q.a.m. 8. Klonopin 0.25 mg p.o. at bedtime. 9. Hydrocodone acetaminophen 1 tablet p.o. q.8 hours p.r.n. 10. Omeprazole 40 mg p.o. q.a.m. 11. Synthroid 88 mcg p.o. q.a.m. 12. Invanz 1 g daily for the next 9 days. DISCHARGE DIET: The patient is to resume diet as tolerated. DISCHARGE ACTIVITY: Patient is to resume activity as tolerated. DISCHARGE DISPOSITION: The patient is to discharge home with home health [facility]. The patient is to follow up with her primary care physician Dr. Jaun Jose Santana in 1 to 2 weeks or sooner if she feels necessary. She is to call and schedule an appointment. The patient is to notify her primary care physician with any questions or concerns from this point forward. Dictated by ZACHARY Glover for Bryan Dooley MD cc: MD Juan Jose Romero MD MTDD
--- NOTE | 2019-05-31 21:03 | DISCHARGE SUMMARY ---
ADMISSION DATE: 05/19/2019 DISCHARGE DATE: 05/27/2019 DISCHARGE DIAGNOSES: 1. ESBL positive Escherichia coli urinary tract infection. She is currently on day 5 of 14 for IV 1 g Invanz daily. 2. Metabolic encephalopathy secondary to her Escherichia coli urinary tract infection, resolved. She is basically back to her baseline. 3. Dementia. 4. Hyperlipidemia. 5. Essential tremors. 6. Hypothyroidism. CONSULTATIONS: None. PROCEDURES: None. BRIEF HOSPITAL COURSE: The patient is an 88-year-old female who was admitted as noted in the HPI secondary to metabolic encephalopathy with acute confusion, disorientation, agitation. She was placed in the hospital on antibiotic Rocephin and then switched eventually to Invanz after her E. coli demonstrated ESBL positive E. coli. She will require total of 14 days of Invanz with 9 days left. Thankfully, her fever resolved after the culture and changing her antibiotics. Since then, her mental status has improved. She is awake, alert. She is back to her baseline. She is actually able to ambulate into the valadez without much difficulty. DISPOSITION: Patient will be discharged home. She will continue antibiotics. Continue physical therapy at home as needed. Continue home health for IV Invanz. Greater than 30 minutes was spent in total care. No changes made on her chronic home medications, diet or activity otherwise. cc: Bryan Dooley MD
== END 2019-05-27 14:18 | disposition home health service (06) | DRG 871 ==
LOC: P.ED 03:32 → P.EDIPHOLD 07:47
PROVIDERS: ATTEND Family Medicine